=== PATIENT | male | born 1985 | race Caucasian/White ===

== ENCOUNTER 2020-02-15 14:43 | Emergency (ER) | payer OTHER, SELFPAY ==
[~2020-02-15] VITALS: Ht 170.2 cm; Wt 105.2 kg
[2020-02-15 14:50] VITALS: BP 141/84
--- NOTE | 2020-02-15 14:50 | NUR ---
PT PLACED IN TENT FOR COVID-19 PRECAUTIONS
--- NOTE | 2020-02-15 14:57 | NUR ---
35 Y/O MALE FROM HOME C/O COUGH, SOB, AND BODY ACHES SINCE YESTERDAY. DRY COUGH NOTED. PT DOES NOT APPEAR IN RESPIRATORY DISTRESS. 2/10 ACHING PAIN TO GENERAL BODY. RR EVEN AND UNLABORED. AFEBRILE UPON ARRIVAL. DENIES N/V/D. AWAKE AND ALERT. HAS NOT TAKEN ANY MEDICATION. VSS MEDHX: WPW
[2020-02-15 15:45] VITALS: BP 141/84
--- NOTE | 2020-02-15 15:45 | NUR ---
COVID-19 SWAB COLLECTED FROM PT
--- NOTE | 2020-02-15 15:45 | NUR ---
Patient discharged with v/s stable. Written and verbal after care instructions given and explained. Patient verbalized understanding. Ambulatory with steady gait. All questions addressed prior to discharge. Advised to follow up with PMD.
== END 2020-02-15 15:44 | disposition home or self-care (01) ==
LOC: MED 14:43 → EEVIPCON 14:43 → MED 15:44
DX: R05 Cough (principal); Z20.828 Contact with and (suspected) exposure to other viral communicable diseases; M79.10 Myalgia, unspecified site; I45.6 Pre-excitation syndrome; Z98.890 Other specified postprocedural states
CPT/HCPCS: 99283; U0003